=== PATIENT | female | born 1985 | race Caucasian/White ===

== ENCOUNTER → 2022-03-02 12:51 | Outpatient (CLI) | payer OTHER, SELFPAY ==
[2022-03-02 13:49] LABS: COVID19 -Nasal RAPID Negative (Negative)
== END ==
PROVIDERS: Referring Provider Orthopaedic Surgery; Visit Provider Orthopaedic Surgery
DX: Z20.822 Contact with and (suspected) exposure to COVID-19 (principal)
CPT/HCPCS: 87635; C9803

== ENCOUNTER 2022-03-03 12:33 | Day surgery (SDC) | payer OTHER, SELFPAY ==
[2022-02-28 08:12] VITALS: BMI 29.5
[2022-03-03] VITALS (7 sets, daily range): BP systolic 112–126; BP diastolic 72–85; PULSE 73–98; RESP 9–19; TEMP 36.1–36.3; O2SAT 97–100; BMI 28.8
[2022-03-03] MEDS: LACTATED RINGERS 1,000 ML 42 ML IV (13:26)
--- NOTE | 2022-03-03 13:40 | SUR.PREOP ---
Patient states she had protein bar at 0800. Anesthesiologist notified and stated to proceed with admitting patient and starting IV
--- NOTE | 2022-03-03 14:43 | PM.HP.1 ---
History of Present Illness History of Present Illness Date Patient Seen: 03/03/22 Time Patient Seen: 14:20 Chief complaint: RIGHT SHOULDER Narrative: 36-year-old female with a previous history of a SLAP repair with recurrent pain to the shoulder that has been unresponsive to conservative treatment. Patient History Medical History Arthritis Headache, migraine Incomplete rotator cuff tear Shoulder impingement Surgical History History of orthopedic surgery Family & Social History Social History: household members spouse,family Tobacco & Substance use: Smoking Status Never smoker alcohol intake current alcohol intake frequency a few times a week Substance Use Type does not use Meds Home Medications and Allergies Home Medications Medication Instructions Recorded Confirmed Type topiramate 50 mg tablet 50 mg PO BID 03/03/22 03/03/22 History Allergies Allergy/AdvReac Type Severity Reaction Status Date / Time No Known Drug Allergies Allergy Verified 03/03/22 12:55 Exam Vital Signs (past 8 hours): - 03/03/22 13:06 Temperature 97.3 F L Pulse Rate 82 Respiratory Rate 16 Blood Pressure 122/76 Pulse Oximetry 100 Oxygen Delivery Method Room Air Oxygen Flow Rate 0 Oxygen Delivery Method Room Air Oxygen Flow Rate 0 Narrative Exam Narrative: Full range of motion of the right shoulder. But pain with range of motion. No sign of any contractures. Pain with stressing of the proximal biceps. Pain with impingement testing. No sign of any glenohumeral joint instability or crepitus. Nontender to palpation over the AC joint. Some pain with supraspinatus strength testing but no weakness. Assessment & Plan Assessment & Plan narrative: Patient with the history of a previous SLAP repair now with the return of pain to the shoulder. Patient has been unresponsive to conservative treatment and previous MRI show signs of possible recurrent SLAP tear. It also shows size of a partial rotator cuff tear. We discussed treatment options both operative versus non operative. Patient is interested in operative treatment which would involve a arthroscopic procedure to assess and address the SLAP tear as well as the rotator cuff. The risk, benefits, alternatives, possible complications, operative course, and postop outcomes were discussed. Complications including but not limiting to bleeding, infection, fracture, nerve injury, continued pain postoperatively or instability postoperatively were discussed in detail. Medical complications including but not limited to deep venous thrombosis event, anesthesia complications with excessive bleeding, vascular events or cardiac events and other possible complications were discussed in detail. Need for postoperative rehabilitation and anticipated hospital stay and clinical course were discussed in detail. Patient acknowledges understanding and elects to proceed with surgery. Time Spent With Patient Critical Care time: I spent a total of [] minutes of critical care time on this patient's care today; this time is exclusive of procedural time.
--- NOTE | 2022-03-03 14:47 | PM.PREOP ---
Pre-operative Note Interval Note History & Physical reviewed/Exam performed by Physician: Yes Changes to H&P: No
--- NOTE | 2022-03-03 15:09 | SUR.PREOP ---
Block start time [1500] . Monitoring initiated and maintained throughout procedure. Oxygen and medications given per anesthesiologist instructions. Patient remained stable throughout procedure, no adverse reactions noted. Block end time [1507].
[2022-03-03] MEDS: CEFAZOLIN 2 GM/100 ML PREMIX 100 ML IV (15:10)
--- NOTE | 2022-03-03 15:10 | SUR.PREOP ---
Block performed by Dr Acevedo with no complications. Patient tolerated well.
--- NOTE | 2022-03-03 15:52 | SUR.OPER ---
Beach chair with skytron shoulder positioner. Lower body on padded OR bed. Head in foam padded head cradle, secured with straps. Non-operative arm secured <90 degrees abduction. Pillow under knees. Safety belt at thigh. Cloth tape over blanket over lower legs.
[2022-03-03] MEDS: ACETAMINOPHEN IV 1,000 MG/100 ML VIAL 400 MG IV (16:14)
[2022-03-03] MEDS: LIDOCAINE 2% W/EPI INJ 20 ML INJ (16:17)
--- NOTE | 2022-03-03 16:24 | P.OP_ITS ---
Operative Date/Time/Diagnoses Date of procedure: 03/03/22 Time of procedure: 15:30 Pre-op diagnosis: Right shoulder SLAP tear Post-op diagnosis: same Procedure & Clinicians Procedure: Right shoulder arthroscopic labral debridement with biceps tenodesis as well as rotator cuff debridement and subacromial decompression Same procedure as scheduled: Yes Indications: Right shoulder SLAP tear with partial rotator cuff tear Surgeon: Trey Person [employer] Supervisor: Johnny Kimball Anesthesia Type: General and Peripheral nerve block Operative Notes Findings: Signs of a previous SLAP repair that had failed. Some loose suture material around the superior labrum. No sign of any articular sided subscapularis tear. Some partial tearing involving the articular surface of the supraspinatus and infraspinatus. No sign of any Bankart tear. Small loose body in the glenohumeral joint. Looked like a small piece articular cartilage. No sign of any significant arthritic changes to the glenohumeral joint . In In subacromial space some mild fraying to the bursal aspect of the rotator cuff. No sign of any high-grade partial tears or full-thickness tears. No sign of any significant AC joint arthritis. Closure Type: primary Estimated Blood Loss (mL): 5 Procedure in detail: On date of service, Patient was met in the holding area. The operative site was signed and witnessed by the OR staff. The surgeries once again discussed with the patient and any remaining questions they had were answered fully. Patient was taken back to the operating theater and placed on the operating table in a supine position. Great care was taken to ensure that all bony prominences were properly padded. Patient was then placed into the beach chair position. The head and neck were properly positioned and secured. A timeout was performed verifying patient's name, procedure, and the operative site. The upper extremity was then prepped and draped in the normal sterile fashion. Previously, the bony anatomy and portal sites were marked out as well as injected with Marcaine with epinephrine. An 11 blade was used to make an incision in the posterior aspect of the shoulder. The camera was placed, and a diagnostic shoulder scope was performed. Findings listed above. Next under direct visualization, a anterior portal was made. Shaver was brought in through the anterior portal and a debridement of the glenohumeral joint was performed. Shaver was used to clean up the superior labrum. Shaver was also used to debride the articular surface of the infraspinatus and supraspinatus. Patient had signs of a previous SLAP repair that had failed with some loose suture material. Grasper was brought in to remove the loose suture material. There was also loose body in the glenohumeral joint which was also removed using the grasper. Once we had debrided the superior labrum it was decided to do a biceps tenodesis. A loop N Tack procedure was performed. Suture material was placed around the biceps in a luggage tag configuration. Then a penetrator was placed through the biceps tendon grabbing the suture and pulling it through providing a secure fixation of the proximal biceps. Next a punch was used to make a hole in the most superior aspect of the groove. Sutures were used to release the biceps from its insertion on the bicipital anchor and superior labrum. The suture was then placed through an anchor and a SwiveLock was then tenodesed in that hole providing a secure fixation of the proximal biceps tendon. Shaver was brought back in and any remaining bicipital tissue or degenerative labral tissue was debrided. We then turned our attention to the subacromial space. Next the camera was placed into the subacromial space. A lateral portal was obtained under direct visualization. A combination of the shaver and vapor wand, a debridement of the inflamed tissue as well as inflamed bursa was performed. The lateral gutter was also cleaned out. This gave us good visualization of the bursal aspect of the rotator cuff as well as the acromial arch. There was an obvious impingement lesion in the acromial arch. Next we turned our attention to the subacromial decompression. Next, a mechanical rasp was then used to do a subacromial decompression. This allowed us to convert the acromion to a type I acromial. This also allowed us to shave down the bony lesion in the acromial space. The rasp was placed into the lateral portal as well as the anterior portal in order to do a complete subacromial decompression. Shaver was used to debride out the inflamed bursal tissue in the subacromial and subdeltoid space. This gave us good visualization of the bursal aspect of the rotator cuff which showed some mild fraying but no sign of any significant partial tears or full-thickness tears. Shaver was used to clean up any fraying to the bursal aspect of the rotator cuff. The shoulder was then taken through range of motion and there was no sign of any additional impingement. Next, the suprascapular nerve was blocked. Patient's shoulder was then cleaned dried and dressed and patient was taken to the PACU in stable condition. Complications: none Post-operative Condition: stable Disposition: PACU Plan for aftercare: Patient will follow-up postoperative protocol for biceps tenodesis.
--- NOTE | 2022-03-03 17:48 | SUR.PHASEII ---
Patient ambulated to bathroom and voided without difficulty. tolerated fluids. Provided written and verbal discharge instructions. Patient stated understanding. Discharged patient by wheelchair to private vehicle in stable condition. See flowsheet for assessment details.
== END 2022-03-03 18:05 | disposition home or self-care (01) ==
PROVIDERS: Referring Provider Orthopaedic Surgery; Visit Provider Orthopaedic Surgery
PROC: 0RQJ4ZZ Repair Right Shoulder Joint, Percutaneous Endoscopic Approach (ICD-10-PCS; CPT 29807; principal; 2022-03-03 14:45)
DX: S46.011A Strain of muscle(s) and tendon(s) of the rotator cuff of right shoulder, initial encounter (principal); S43.431A Superior glenoid labrum lesion of right shoulder, initial encounter; M75.41 Impingement syndrome of right shoulder; W10.9XXA Fall (on) (from) unspecified stairs and steps, initial encounter
CPT/HCPCS: 29828; 29826; 29823; 01610; 64450; J0131; J0690; J1100; J1170; J1885; J2405; J2704; J2795; J3010